=== PATIENT | male | born 1970 | race Caucasian/White ===

== ENCOUNTER → 2020-11-03 | Outpatient (CLI) | payer OTHER ==
[~2020-11-03] MED LIST: HYDROXYZINE HCL25 M2 PO; LYRICA 75 MG CA75 MG PO; MELATONIN3 M1 PO; NORCO 10-325 T1 EACH PO; PEPCID40 MG PO
== END ==
LOC: M.LAB 17:57
PROVIDERS: ATTEND Surgery
DX: Z01.812 Encounter for preprocedural laboratory examination (principal); Z20.828 Contact with and (suspected) exposure to other viral communicable diseases

== ENCOUNTER → 2020-11-06 | Day surgery (SDC) | payer OTHER ==
[2020-11-06 11:47] LABS: CALCIUM 9.5 mg/dL (8.5-10.1)
[2020-11-06 11:53] LABS: TOTAL BILIRUBIN 1.2 mg/dL (<0.1-1.0); TOTAL PROTEIN 7.3 g/dL (6.4-8.2)
--- NOTE | 2020-11-06 14:05 | EKG ---
[place] [address] ELECTROCARDIOGRAM REPORT Name: ANTON HESTER Room: [facility]#: [id number] Admission: 11/06/20 Attend Phys: Hemal Ernst Discharge: Date of : 70 Date of Service: 11/06/20 1207 Report #: [id number] THIS REPORT FOR: //name// [facility] Test Date: 2020-11-06 Test Time: 12:07:45 Pat Name: ANTON HESTER Department: Room: Gender: Pipeliner: : 1970 Requested By: Hemal Mccain Order Number: [id number] Erica MD: Faustino Corea Measurements Intervals [place] Rate: 61 P: 44 PA: 175 QRS: -30 QRSD: 94 T: 20 QT: 419 QTc: 422 Interpretive Statements Sinus rhythm Left axis deviation Borderline low voltage, extremity leads Abnormal R-wave progression, late transition No previous ECG available for comparison Electronically Signed On 11-06-2020 14:05:08 [employer] SLIDE OPERATOR by Faustino Corea [email or web address] <ELECTRONICALLY SIGNED> By: Faustino Corea MD, [facility] 11/06/20 1405 1207 1207 Faustino Corea MD, [facility] /EPI
--- NOTE | 2020-11-11 15:07 | PATH ---
[address] [address] PATHOLOGY RPT PROCEDURE Name: ANTON CASTLE Room: [facility]#: [id number] Admission: 11/06/20 Date of : 70 Discharge: Report #: [id number] Path Case #: [id number] [facility] Accession Number: [id number] . 01 Material submitted: . gallbladder - GALLBLADDER AND CONTENTS . 01 Clinical history: . CALCULUS OF GALLBLADDER . 02 Diagnosis: Gallbladder and contents: - Chronic cholecystitis and cholelithiasis. (SHELLEY/db; 11/10/2020) LBQ 11/10/2020 1545 Local . 02 Electronically signed: . Jovany Gill MD, Pathologist NPI- [id number] . 01 Gross description: . The specimen is received in formalin labeled "Anton [place], gallbladder and contents" and consists of an intact green gallbladder measuring 7.6 x 3.4 x 3.4 cm. The margin is inked black. Opening reveals a lumen filled with viscous green bile and multiple black gravel-like calculi measuring up to 0.5 cm. The mucosa is dark green and velvety with an average wall thickness of 0.1 cm. No masses are identified. [employer] sections are submitted in A1. (SDY; 11/09/2020) SYU/SYU 11/09/2020 [facility] . 02 Pathologist provided ICD-10: K80.10 . 02 CPT . 274682 Specimen Comment: A courtesy copy of this report has been sent to [phone], [phone] Specimen Comment: [phone] Specimen Comment: Report sent to / DR VASQUEZ Performed at: [facility] [address], [place] [id number] MD Diego Esteves MD Phone: [phone] Performed at: [address] [facility] [address] [address] [place], [place] [id number] MD Jovany Gill MD Phone: [phone]
--- NOTE | 2020-11-12 11:07 | OP ---
[facility] [address] [place] [address] OPERATIVE REPORT Name: ANTON HESTER Room: [facility].#: [id number] Admission: 11/06/20 Attend Phys: Hemal Mccain Discharge: Date of : 70 Report #: [id number] THIS REPORT FOR: cc: Lindsay Kitchen Tawn A MSN FNP C ~ Hemal Mccain MD DATE OF SERVICE: 11/06/2020 PREOPERATIVE DIAGNOSIS: Symptomatic cholelithiasis. POSTOPERATIVE DIAGNOSIS: Symptomatic cholelithiasis. PROCEDURE: Laparoscopic cholecystectomy. SURGEON: Hemal Mccain MD ANESTHESIA: General. ESTIMATED BLOOD LOSS: 5 mL. SPECIMEN: Gallbladder. DESCRIPTION OF PROCEDURE: After informed consent was obtained, the patient was brought to the operating room and placed supine. SCDs were placed and working, preoperative antibiotics were administered, general anesthesia was induced. The abdomen was prepped and draped in the usual sterile fashion. A 10 mm incision was made below the umbilicus. Fascia was incised and a trocar was placed. Pneumoperitoneum was established. Three right upper quadrant 5 mm ports were placed. Gallbladder was grasped at the fundus and retracted cephalad. Infundibulum was grasped and retracted laterally. I dissected out the cystic duct and cystic artery. I dissected out the cystic plate. Cystic duct and artery were clipped and ligated leaving 2 clips on the remaining duct and one on the remaining artery. Gallbladder was then taken off the liver bed with electrocautery. It was placed into an Endopouch and removed. The fascia was then closed with a [id number] 0 Vicryl. Skin was closed with 4-0 Monocryl. Incisions were sealed with Steri-Strips. COMPLICATIONS: None. DISPOSITION: The patient was taken to recovery in satisfactory condition. <ELECTRONICALLY SIGNED> By: Hemal Mccain MD 11/12/20 1107 1325 [id number] Mccain MD /nt
== END | disposition home or self-care (01) ==
LOC: M.SUR 10:43
PROVIDERS: ATTEND Surgery
DX: K80.10 Calculus of gallbladder with chronic cholecystitis without obstruction (principal); R10.9 Unspecified abdominal pain; K21.9 Gastro-esophageal reflux disease without esophagitis; G43.909 Migraine, unspecified, not intractable, without status migrainosus; G47.30 Sleep apnea, unspecified; M79.7 Fibromyalgia; Z98.890 Other specified postprocedural states; Z79.899 Other long term (current) drug therapy